=== PATIENT | female | born 1980 | race Caucasian/White ===

== ENCOUNTER 2025-04-09 07:49 | Outpatient (AMB) | payer OTHER, SELFPAY ==
--- NOTE | 2025-04-09 07:58 | A.OFFVIS_ITS ---
Vital Signs 04/09/25 07:59 Height 5 ft 5 in Weight 174 lb 4 oz BMI 29.0 BP 120/82 Blood Pressure Location Rt brachial Position Sitting Pulse 68 Pulse Source Pulse Oximeter Pulse Oximetry (%) 98 Oxygen Delivery Method Room Air Intake Visit Reasons: ENP- Hypersomnolence (CONF.) Intake Note: Patient presents BANDER HAND Hypersomnolence. Can fall asleep anywhere. Patient states snoring no apnea/gasping. Doesn't have hard time falling asleep initially but once she wakes up once she has hard time falling back asleep Hard time staying asleep. Goes to bed at 8-9pm and wakes up at 5am. wakes up 2+times a night. Naps,Headaches start at temples and wraps around. Nausea,dizzy,light sensitivity. No History of sleep studies Accompanied by: Self / Same As Patient Allergies environmental allergies Allergy (Unknown, Verified 04/09/25 08:03) Unknown Penicillins Allergy (Unknown, Verified 04/09/25 08:03) Hives HPI Comments Details: 44 year female is referred to us for hypersomnia by her PCP, Dr. Pauline Kramer. - ESS 17 today. [facility] ENT procedure with [facility], 2019 she had a turbinoplasty, her l. nare is still raw since this procedure. She has mucous like thick fluid drainage from only that nare and congestion, tried flonase is ineffective. Rosalio es bleeding. For the pas year she falls asleep in meetings or while sitting quietly in trainings, on zoom calls and interviews. She works as a residential door unit installer, for a [employer]. She goes to bed at 8pm and falls asleep easily but has a difficulty staying asleep. She gets up for the bathroom and can not get back to sleep. She tried melatonin and it knocks her out then sleeps for 4 hours, and then takes another one as needed. She wakes up with morning headaches daily which dull after taking excedrin. She denies bruxism and clenching her jaws.She has acid reflux and takes omeprazole daily. Memory is foggy, will forget conversations, needs phone reminders to stay on task. Denies word difficulty or recall and is not slow to process. Denies forgetting appt, medication. Denies RLS, parasomnias, snoring and gasping for air. Denies smoking, tried edibles to induce sleep, alcohol use socially. FH + LA at 67 dad, Chrohns and prostate cancer. Mom HTN, IBS, Dementia?Sister 45 Trigeminal Neuralgia. [facility] Medical History Recurrent sinusitis Headache GERD (gastroesophageal reflux disease) Anxiety Anemia Allergic rhinitis ADHD Family History Mother HTN (hypertension) Father Colon polyps HTN (hypertension) Crohn's disease Asthma Heart disease Prostate cancer Paternal Grandmother Diabetes mellitus Paternal Grandmother Heart attack Social History Alcohol intake: current Patient Tobacco Use Status: Former Tobacco user e-Cigarette/Vaping Use: Never Used Physical Exam Vital Signs: Last Vital Signs Pulse 68 04/09/25 07:59 BP 120/82 04/09/25 07:59 Pulse Ox 98 04/09/25 07:59 Oxygen Delivery Method Room Air 04/09/25 07:59 BMI result Body Mass Index 29.0 Const General: cooperative, comfortable and no acute distress Nutritional Appearance: average body habitus Orientation/consciousness: patient oriented x3 HEENT Face and sinus: Yes face symmetric Throat: Yes other (mallampti score is 3) Eyes Pupils: Equal, round and reactive pupils present Neck Neck: Yes full ROM Resp Effort & Inspection: normal respiratory effort and able to speak in complete sentences Neuro General: patient oriented x3 and moves all extremities Cranial nerves: Yes Equal, round and reactive pupils present, Yes Normal accommodation reflex present, Yes Normal facial strength present, Yes Ability to bilaterally rotate head present and Yes Ability to bilaterally elevate shoulders present Cognition (Neuro): normal cognition Gait exam (Neuro): Normal gait present Motor exam (neuro): 5/5 motor strength present throughout and Normal motor muscle tone present throughout Psych Appearance: grossly normal Mental Status: mental status grossly normal Thought process: Normal thought process present Thought content: Normal thought content present Assessment & Plan Assessment & Plan (1) Excessive daytime sleepiness: Code(s): G47.19 - Other hypersomnia Category: Medical (2) Chronic fatigue: Code(s): R53.82 - Chronic fatigue, unspecified Category: Medical Plan HST r/o lula Labs reviewed with pt. Start vit d 1000unit otc and magnesium 200-400mg po daily at bedtime. f/u in 3 months Orders: Orders RT home sleep study 04/09/25 G47.19 - Other hypersomnia Patient Instructions: Sleep Hygiene provided: set a scheduled bedtime and wake time to help regulate the circadian rhythm and balance the release of pituitary hormones. Sleep in a dark room, temperatures below 68 degrees, and no devices n bed. Limit caffeinated products 6 hours prior to bed, and limit fluids 2-4 hours prior to bed. Gentle night yoga, diffusing essential oils, and playing soft music can be relaxing. Coding Level of Care Code New Pt Level 4 (02164) Diagnoses Excessive daytime sleepiness G47.19 Chronic fatigue R53.82 [place] Sleepiness Scale Questions Sitting and reading: high chance of dozing Watching TV: high chance of dozing Sitting inactive in a theater, movie etc.: slight chance of dozing As a passenger in a car for an hour without break: moderate chance of dozing Lying down in the afternoon when circumstances permit: moderate chance of dozing Sitting and talking to someone: moderate chance of dozing Sitting quietly after lunch without alcohol: high chance of dozing In a car, while stopped for a few minutes in the traffic: slight chance of dozing ESS < 10: normal, ESS > 12: pathologic: 17
[2025-04-09 07:59] VITALS: BP 120/82; PULSE 68; O2SAT 98; BMI 29.0
== END 2025-04-09 08:49 | disposition home or self-care (01) ==
LOC: HO.HSMS 07:49
PROVIDERS: PCP Physician Assistant; Visit Provider Physician Assistant Medical
DX: G47.19 Other hypersomnia (principal); R53.82 Chronic fatigue, unspecified
CPT/HCPCS: 99204

== ENCOUNTER → 2025-05-15 12:50 | Outpatient (REF) | payer OTHER, SELFPAY ==
--- OUTSIDE RECORDS SUMMARY | 2025-05-15 12:52 | XMS_ITS | Encounter Summary ---
Author Organization [facility] [place] [address] Care Team Providers Care [employer] Programmer Name Role Phone Micheline Hughes MD Primary Care Provider [phone] Encounter Details Date Type Department Care Team (Late st Contact Info) Description 03/29/2025 Results Follow-Up Adult Medicine [address] [phone] Dorina Pritchard [place] Social History Tobacco Use Types Packs/Day Years Used Date Smoking Tobacco: Former Cigarettes 0.5 7 0 05/23/2008 - 05/23/2015 Smokeless Tobacco: Never Alcohol Use Standard Drinks/Week Comments Yes 2 (1 standard drink = 0.6 oz pur e alcohol) Housing Instability Answer Date Recorde d Are you worried that in the next 2 months you may not have stable housing? No 04/06/2024 Food Access & Nutrition Answer Date Rec orded Do you have access to a vari ety of food including fruits and vegetables? Yes 04/06/2024 Access to Healthcare Answer Date Record ed Within the last 3 months, ho w many times did you visit the emergency department for your medical care? 0 04/06/2024 Health Literacy Answer Date Recorded How often do you need to hav e someone help you when you read instructions, pamphlets, or other written material from your doctor or pharmacy? Never 04/06/2024 Caregiver: How often do you need to have someone help you when you read instructions, pamphlets, or other written material from your doctor or pharmacy? Not on file 04/06/2024 Financial Risk Answer Date Recorded How hard is it for you to pa y for the very basics like food, housing, medical care, and air conditioning / heating? Not very hard 04/06/2024 Transportation Answer Date Recorded Has the lack of transportati on kept you from meetings, work, or from getting things needed for daily living? No Has the lack of transportati on kept you from medical appointments or from getting medications? No 04/06/2024 Social Isolation Answer Date Recorded How often do you feel lonely or isolated from th ose around you? Never 04/06/2024 Food Risk Answer Date Recorded Within the past 12 months we worried whether our food would run out before we got money to buy more. Never true 04/06/2024 Within the past 12 months th e food we bought just didn't last and we didn't have money to get more. Never true 04/06/2024 Dependent Care Answer Date Recorded Do you need help finding or paying for care for your loved ones. For example, child care development specialist or elderly care for an older adult? No 04/06/2024 Education Answer Date Recorded Do you think completing more education or training, like finishing a GED, going to college, or learning a trade, would be helpful for you? No 04/06/2024 Employment and Income Answer Date Recor ded During the last four weeks, have you been actively looking for work? No 04/06/2024 Living Situation Answer Date Recorded What is your living situation? Unrecognized valu e 04/06/2024 Interpersonal Safety Answer Date Record ed Physical Abuse Unrecognized value 05/28/2024 Verbal Abuse Unrecognized value 05/28/2024 Comments No Sex and Gender Information Value Date Recorded Sex Assigned at Female 05/17/2024 1:38 PM EST Legal Sex Female 2:16 PM EST Gender Identity Female 05/17/2024 1:38 PM EST Sexual Orientation Straight 05/17/2024 1: 38 PM EST documented as of this encounter Plan of Treatment Upcoming Encounters Date Type Department Care Team (Late st Contact Info) Description 05/28/2025 3:30 PM EST Office Visit Adult Medicine [address] [phone] Agus Abbott PA [address] [place], [place] 06/18/2025 8:00 AM EST Office Visit Bariatric Surgery - [place] [address] [place] [phone] Silvia Mazariegos PA [address] [place] [phone] 11/27/2025 4:00 PM EDT Office Visit Adult Medicine [facility] [address] [place] [address] Micheline Hughes MD [address] [place] [address] documented as of this encounter Goals Goal Patient Goal Type Associated Problems Recent Progress Patient-Stated? Author STG's 4 visits General Yes Sandro Szymanski, PT Note: Pt will report L hip pain of no more than 3/10 max during walking for exercise or dancing. Pt will demonstrate a 1/2 grade or better in LE strength deficits to increase tolerance to WB activities. Pt is Independent and compliant with initial HEP. LTG's 8 visits General Yes Sandro Szymanski, PT Note: Pt will report L hip pain of no more than 1/10 max during walking for exercise or dancing. Pt will demonstrate B LE strength 4+/5 or better to increase tolerance to WB activities. Pt will be Independent and compliant with final HEP. documented as of this encounter Visit Diagnoses Not on filedocumented in this encounter Additional Health Concerns Assessment Noted Time PHQ-9 Depression Total Score: 0 11/17/19 25 11:32 AM EDT documented as of this encounter Care Teams [employer] Programmer Relationship Specialty Start Date End Date Micheline Hughes MD [address] [place] [address] PCP - General Internal Medicine 03/30/24 documented as of this encounter
--- OUTSIDE RECORDS SUMMARY | 2025-05-15 12:52 | XMS_ITS | Clinical Summary ---
Author Organization [address] Address [address] [place] [phone] Phone Care Team Providers Care Field Marketing Lead Name Role Phone Micheline Hughes MD Primary Care Provider [phone] Allergies Active Allergy Reactions Criticality Noted Date Comments Penicillins Hives Low 07/11/2012 Other Reaction(s): Hives/Urticaria Medications levonorgestrel -ethinyl estradiol (AVIANE,ALESSE ) 0.1-20 mg-mcg per tablet Take 1 tablet by mouth 1 (one) time each day. Active naproxen (EC NAPROSYN) 500 mg EC tablet Take 1 tablet (500 mg total) by mouth 1 (one) time each day with breakfast. Do not crush, chew, or split. 28 tablet 12/15/19 25 Active fluticasone propionate (FLONASE) 50 mcg/actuation nasal spray USE 1 SPRAY IN EACH NOSTRIL TWICE DAILY 16 g 5 04/16/20 25 Active omeprazole (PriLOSEC) [address] capsule TAKE 1 CAPSULE(20 MG) BY MOUTH 1 TIME EACH DAY 90 capsule 1 04/17/20 25 Active semaglutide (Wegovy) 2.4 mg/0.75 mL injection pen Inject 2.4 mg under the skin every 7 (seven) days. 3 mL 04/24/20 25 Active omeprazole (PriLOSEC) [address] capsule Take 1 capsule (20 mg total) by mouth 1 (one) time each day. 90 capsule 1 11/17/19 025 Discontinued fluticasone propionate (FLONASE) 50 mcg/actuation nasal spray Shake liquid before each use 16 g 5 11/17/19 25 025 Discontinued semaglutide (Wegovy) 2.4 mg/0.75 mL injection pen Inject 2.4 mg under the skin every 7 (seven) days. 3 mL 03/27/20 025 Discontinued(Re order) Active Problems Problem Noted Date Diagnosed Date Allergic rhinitis 04/13/2024 ADHD (attention deficit hyperactivity disorder) 02/23/2024 Anxiety 02/23/2024 Class 1 obesity due to exces s calories with serious comorbidity and body mass index (BMI) of 31.0 to 31.9 in adult 02/23/2024 Heart murmur 11/14/2023 Gastroesophageal reflux disease without esophagi tis 02/25/2023 Vitamin B 12 deficiency 02/25/2023 Vitamin D deficiency 02/25/2023 Recurrent sinusitis 06/06/2020 Resolved Problems Problem Noted Date Diagnosed Date Resolved Date Stress incontinence (female) (male) 05/28/2024 11/16/2024 Urge urinary incontinence 05/28/2024 Cystocele, midline 05/28/2024 Encounters Date Type Department Care Team Description 03/29/2025 Results Follow-Up Adult [address] [phone] Dorina Pritchard [place] 03/28/2025 3:30 PM EST Lab Draw Station [address] Hypersomnolence; Vitamin B 12 deficiency; Vitamin D deficiency 03/28/2025 3:00 PM EST Office Visit Adult [address] [phone] Agus Abbott PA Hypersomnolence (Primary Dx); Vitamin D deficiency; Vitamin B 12 deficiency; Need for prophylactic vaccination and inoculation against influenza 02/21/2025 10:47 AM EDT - 02/21/2025 11:09 AM EDT Emergency [facility] [address] [place] [address] Pharyngitis, unspecified etiology (Primary Dx); Paresthesia Discharge Disposition: Home or Self Care 02/21/2025 Telephone Adult Medicine [address] [phone] Micheline Hughes MD from Last 3 Months Immunizations Immunization Administration Dates Next Due DTaP (Infanrix) 6wks to less than 7yo 10/04/2011 Influenza Quadravalent, MDCK , 0.5ml, preservative free (Flucelvax) 6mo and older 02/25/2023 Influenza trivalent, MDCK, 0 .5mL, preservative free (Flucelvax) 6mo and older 03/28/2025 Pneumococcal polysaccharide 23 valent (Pneumovax 23) 2yo and older 07/20/2019 Tdap Tetanus diptheria acell ular pertussis (Boostrix; Adacel) 7yo and older 08/21/2018 Surgical History Surgery Date Site/Laterality Comments VAGINOSCOPY PROCEDURE: [place] COLPOSCOPY CERVIX VAG LOOP ELTRD BX CERVIX OTHER SURGICAL HISTORY 04/2019 PROCEDURE: HISTORICAL UNSPECIFIED SURGERY; COMMENT: sinus surgery SINUS SURGERY VAGINAL PROLAPSE REPAIR 05/28/2024 Anterior colporrhaphy RETROPUBIC SLING 05/28/2024 Medical History Medical History Date Comments ADHD (attention deficit hype ractivity disorder) DX:ADHD (attention deficit hyperactivity disorder) Anxiety DX:Anxiety Recurrent sinusitis 06/06/2020 DX:Recurrent sinusitis GERD (gastroesophageal reflux disease) At high risk for urge incont inence of urine Allergic rhinitis Anemia Headache Family History Medical History Relation Name Comments Asthma Father Wing Colon polyps Father Wing Crohn's disease Father Wing Heart disease Father Wing Hypertension Father Wing Prostate cancer Father Wing Hypertension Mother Malaika Other: IBS Mother Malaika Diabetes Paternal Grandmother Annika Breast cancer Neg Hx ? great aunt Colon cancer Neg Hx Heart attack Neg Hx paternal great grandmother Ovarian cancer Neg Hx Stroke Neg Hx Uterine cancer Neg Hx Relation Name Status Comments Father Wing Mother Malaika Paternal Grandmother Annika Social History Tobacco Use Types Packs/Day Years Used Date Smoking Tobacco: Former Cigarettes 0.5 7 0 05/23/2008 - 05/23/2015 Smokeless Tobacco: Never Tobacco Cessation:Counseling Given: Not Answered Alcohol Use Standard Drinks/Week Comments Yes 2 [...] care for your loved ones. For example, early childhood services coordinator or elderly care for an older adult? [...] Orientation Straight 05/17/2024 1: 38 PM EST Last Filed Vital Signs Vital Sign Reading Time Taken Comments Blood Pressure 115/77 03/28/2025 3:02 PM EST Pulse 72 03/28/2025 3:02 PM EST Temperature 36.3 C (97.4 F) 03/28/2025 3:02 PM EST Respiratory Rate 12 03/28/2025 3:02 PM EST Oxygen Saturation 98% 02/21/2025 10:22 AM EDT Inhaled Oxygen Concentration - - Weight 79.4 kg (175 lb) 03/28/2025 3:02 PM EST Height 165.1 cm (5' 5 ) 03/28/2025 3:02 PM EST Body Mass Index 29.12 03/28/2025 3:02 PM EST Plan of Treatment Upcoming Encounters Date Type Department Care Team (Late st Contact Info) Description 05/28/2025 3:30 PM EST Office Visit [address] [phone] Agus Abbott PA [address] [place] [phone] 06/18/2025 8:00 AM EST Office Visit Bariatric Surgery - [address] [place] [phone] Jessica Mazariegos PA [address] [place] [phone] 11/27/2025 4:00 PM EDT Office Visit Adult Medicine [address] [place], [place] [phone] Micheline Hughes MD [address] [place] [address] Health Maintenance Due Date Last Done Comments Hepatitis B Vaccines (1 of 3 - 19+ 3-dose series) 2001 HPV Vaccines (1 - 3-dose SCD M series) 2009 COVID-19 Vaccine (3 - 2024-2 6 season) 2025 01/14/2021, 12/24/2020 Social Influencers of Health Screening 04/06/2025 04/06/2024 Hepatitis C Screening 11/14/2025 Postpo mike from 05/01/2022 (Patient Refused) HIV Screening 11/15/2025 Postponed from 05/01/2022 (Patient Refused) Breast Cancer Screening 10/26/2026 10/26/2024 Cervical Cancer Screening: Pap Smear 08/11/2028 08/12/2023, 06/04/2020 DTaP,Tdap,and Td Vaccines (3 - Td or Tdap) 08/21/2028 08/21/2018, 10/04/2011 Cholesterol Screening (Lipid Panel) 12/07/2029 12/07/2024, 05/04/2024, 09/02/2023 RSV Immunization Adult Patients (1 - 1-dose 75+ series) 2057 Pneumococcal Vaccine: Pediatrics (0 to 5 Years) and At-Risk Patients (6 to 49 Years) Aged Out 07/20/2019 No longer eligible b ased on patient's age to complete this topic Depression Screening Completed 11/16/2024 Influenza Vaccine Completed 03/28/2025, 02/25/2023 HIB Vaccines Aged Out No longer eligi ble based on patient's age to complete this topic Hepatitis A Vaccines Aged Out No long er eligible based on patient's age to complete this topic IPV Vaccines Aged Out No longer eligi ble based on patient's age to complete this topic MMR Vaccines Aged Out No longer eligi ble based on patient's age to complete this topic Meningococcal ACWY Vaccine Aged Out N o longer eligible based on patient's age to complete this topic Meningococcal B Vaccine Aged Out No l onger eligible based on patient's age to complete this topic RSV Immunization Patients Under 20 months Aged Out No longer eligible b ased on patient's age to complete this topic Varicella Vaccines Aged Out No longer eligible based on patient's age to complete this topic Goals Goal Patient Goal Type Associated Problems [...] be Independent and compliant with final HEP. Medical Devices Implanted Type Area Chemical Dependency Counselor Device Identifier Shelf Expiration Date Model / Serial / Lot System Gynecare Tvt Exact 3mm Troc Retro Pubic Urnry Incont - Sn/A - [id number] Implanted:Qty: 1 on 05/28/2024 by Antonietta Chowdhury MD at [facility] Surgical Mesh Sling Implants N/A: Urinary Bladder [employer] 06/22/2024 TVTRL / N/A / [id number] Procedures Procedure Name Priority Date/Time Associated Diagnosis Comments IRON AND TIBC Routine 03/28/2025 3:35 PM EST Hypersomnolence FERRITIN Routine 03/28/2025 3:35 PM EST Hypersomnolence VITAMIN D 25 HYDROXY Routine 03/28/2025 3:35 PM EST Hypersomnolence Vitamin D deficiency VITAMIN B12 Routine 03/28/2025 3:35 PM EST Hypersomnolence Vitamin B 12 deficiency THYROID STIMULATING HORMONE WITH REFLEX TO FREE T4 AND FREE T3 Routine 03/28/2025 3:35 PM EST Hypersomnolence LIPID PANEL WITH REFLEX TO DIRECT LDL Routine 12/07/2024 8:02 AM EDT PE (physical exam), annual MG MAMMO DIGITAL DIAGNOSTIC BILAT Routine 10/26/2024 11:36 AM EDT PAP SMEAR Routine 06/04/2020 11:35 AM EST from Last 3 Months or Most Recently Relevant to Health Maintenance Results * Thyroid stimulating hormone with reflex to free t4 and free t3 (03/28/2025 3:35 PM EST) TSH 1.34 0.40 - 4.00 mcIU/mL LAB CHEMISTRY METHOD 03/28/2025 6:42 PM EST [facility] Blood Venous blood specimen / Unknown Venipuncture / Unknown 03/28/2025 3:35 PM EST 03/28/2025 3:35 PM EST us Agus FRANCES LAB BLOOD ORDERABLES Final Res ult [facility] [address] [place] [address], [place] [phone] * Iron and TIBC (03/28/2025 3:35 PM EST) Iron 71 40 - 150 mcg/dL LAB CHEMISTRY METHOD 03/28/2025 6:23 PM EST [facility] TIBC 436 250 - 450 mcg/dL LAB CHEMISTRY METHOD 03/28/2025 6:23 PM EST [facility] Iron Saturation 16 15 - 50 % LAB CHEMISTRY METHOD 03/28/2025 6:23 PM EST [facility] Blood Venous blood specimen / Unknown Venipuncture / Unknown 03/28/2025 3:35 PM EST 03/28/2025 3:35 PM EST Agus FRANCES LAB BLOOD ORDERABLES Final Res ult Performing Organization Address City/[facility]/ZIP Co de Phone Number [facility] [address] [place] [address], * (ABNORMAL) Vitamin D 25 hydroxy (03/28/2025 3:35 PM EST) Vit D, 25-Hydroxy 23.2(L) 30.0 - 80.0 ng/mL LAB CHEMISTRY METHOD 03/28/2025 6:42 PM EST [facility] Blood Venous blood specimen / Unknown Venipuncture / Unknown 03/28/2025 3:35 PM EST 03/28/2025 3:35 PM EST us Agus FRANCES LAB BLOOD ORDERABLES Final Res ult Performing Organization Address [facility]/ZIP Co de Phone Number [facility] [address] [place] [address], [place] [phone] * Ferritin (03/28/2025 3:35 PM EST) Ferritin 44 8 - 252 ng/mL LAB CHEMISTRY METHOD 03/28/2025 6:23 PM EST [facility] Blood Venous blood specimen / Unknown Venipuncture / Unknown 03/28/2025 3:35 PM EST 03/28/2025 3:35 PM EST Agus FRANCES LAB BLOOD ORDERABLES Final Res ult Performing Organization Address City/[facility]/ZIP Co de Phone Number [facility] [address] [place] [address], [place] [phone] * Vitamin B12 (03/28/2025 3:35 PM EST) Pathologist [facility] Vitamin B-12 546 250 - 900 pcg/mL LAB CHEMISTRY METHOD 03/28/2025 6:45 PM EST [facility] Blood Venous blood specimen / Unknown Venipuncture / Unknown 03/28/2025 3:35 PM EST 03/28/2025 3:35 PM EST us Agus FRANCES LAB BLOOD ORDERABLES Final Res ult Performing Organization Address City/[facility]/ZIP Co de Phone Number [facility] [address] [place] [address], [place] [phone] * (ABNORMAL) Lipid panel with reflex to direct LDL (12/07/2024 8:02 AM EDT) [facility] Cholesterol 208(H) 0 - 200 mg/dL LAB CHEMISTRY METHOD 12/07/2024 10:54 AM EDT [facility] Triglycerides 133 0 - 150 mg/dL LAB CHEMISTRY METHOD 12/07/2024 10:54 AM EDT [facility] HDL 60 >=40 mg/dL LAB CHEMISTRY METHOD 12/07/2024 10:54 AM EDT [facility] LDL Calculated 121(H) 0 - 100 mg/dL LAB CHEMISTRY METHOD 12/07/2024 10:54 AM EDT [facility] VLDL Cholesterol Dandre 26.6 mg/dL LAB CHEMISTRY METHOD 12/07/2024 10:54 AM EDT [facility] Non HDL Chol. (LDL+VLDL) 148(H) <145 mg/dL LAB CHEMISTRY METHOD 12/07/2024 10:54 AM EDT [facility] Chol/HDL Ratio 3.5 0.0 - 4.4 LAB CHEMISTRY METHOD 12/07/2024 10:54 AM EDT [facility] Blood Venous blood specimen / Unknown Venipuncture / Unknown 12/07/2024 8:02 AM EDT 12/07/2024 8:02 AM EDT us Micheline Hughes MD LAB BLOOD ORDERABLES Final Resul t [facility] [address] [place], [place] [address] [phone] * MG Mammo Digital Diagnostic bilat (10/26/2024 11:36 AM EDT) Anatomical Region Laterality Modality Breast Bilateral Mammography Historical Provider MD ALMENDAREZ BI PROCEDURES Final R esult * Pap smear (06/04/2020 11:35 AM EST) Brushing/Spatula Cervix uteri structure / Unknown us Historical Provider LAB CYTOLOGY ORDERABLES F inal Result from Last 3 Months or Most Recently Relevant to Health Maintenance Insurance [facility] Advance Directives * Full Code - Default (Latest Code Status on File) Date Activated Date Inactivated Comments 05/28/2024 6:14 AM 05/28/2024 1:23 PM This is order is used when code status has not been discussed with the patient, or code status is otherwise unknown/unconfirmed To update the patient's code status, place a code status order. Do not modify or discontinue any currently active code status orders. Care Teams Field Marketing Lead Relationship Specialty Start Date End Date Micheline Hughes MD [address] [place] [phone] PCP - General Internal Medicine 03/30/24
== END ==
LOC: HO.SL 12:50
PROVIDERS: PCP Internal Medicine; Visit Provider Physician Assistant Medical
DX: G47.19 Other hypersomnia (principal)
CPT/HCPCS: 95806

== ENCOUNTER → 2025-05-16 13:09 | Outpatient (BNV) | payer OTHER, SELFPAY | PROVIDERS: PCP Internal Medicine; Visit Provider Psychiatry & Neurology Neurology | DX: G47.33 Obstructive sleep apnea (adult) (pediatric) (principal) | CPT/HCPCS: 95806 ==